=== PATIENT | female | born 1995 | race Two or more races ===

== ENCOUNTER 2023-03-06 19:38 | Inpatient (IN) | payer BC ==
[~2023-03-06] VITALS: Ht 165.1 cm; Wt 68.0 kg
== END 2023-03-08 16:43 | disposition home or self-care (01) | DRG 779 ==
LOC: ER 19:38 → SEC-K 03-07 15:12 → O/R 03-07 18:46 → OB/GYN 03-07 21:14
PROVIDERS: ADMIT Student in an Organized Health Care Education/Training Program; ATTEND Student in an Organized Health Care Education/Training Program
PROC: 30233N1 Transfusion of Nonautologous Red Blood Cells into Peripheral Vein, Percutaneous Approach (ICD-10-PCS; 2023-03-07)
PROC: 10D17Z9 Manual Extraction of Products of Conception, Retained, Via Natural or Artificial Opening (ICD-10-PCS; principal; 2023-03-07 18:00)
DX: O03.1 Delayed or excessive hemorrhage following incomplete spontaneous abortion (principal); O03.39 Incomplete spontaneous abortion with other complications; D50.0 Iron deficiency anemia secondary to blood loss (chronic); Z20.822 Contact with and (suspected) exposure to COVID-19